=== PATIENT | male | born 1985 | race Caucasian/White ===

== ENCOUNTER 2016-12-14 18:18 | Emergency (ER) | payer OTHER | END 2016-12-14 20:40 | disposition home or self-care (01) | LOC: ER 18:18 | DX: T54.91XA Toxic effect of unspecified corrosive substance, accidental (unintentional), initial encounter (principal); R11.10 Vomiting, unspecified; Z88.5 Allergy status to narcotic agent | CPT/HCPCS: 36415; 80307; G0480 ==